=== PATIENT | male | born 1945 | race African-American/Black ===

== ENCOUNTER 2020-09-12 01:22 | Emergency (ER) | payer MEDICARE, MEDICAID ==
[2020-09-12] MEDS ORDERED: Rocuronium Bromide 10 MG/ML (10ML VIAL) ONE (01:36)
[2020-09-12] MEDS ORDERED: Propofol 1,000 MG/100 ML VIAL IV ONE (02:00)
[2020-09-12] MEDS ORDERED: Fentanyl 100 MCG/2 ML VIAL ONE ×2 (02:03→03:21)
[2020-09-12] MEDS ORDERED: levETIRAcetam in NS 100 ML ONE (02:35)
[2020-09-12] MEDS ORDERED: cefTRIAXone\\ROCEPHIN 2 GM VIAL ONE (02:35)
[2020-09-12 02:43] LABS: SARS-CoV-2 NAA Rapid Test Not Detected (NotDetected)
[2020-09-12] MEDS ORDERED: Thiamine HCl 200 MG/2 ML VIAL ONE (03:21)
[2020-09-12 03:23] LABS: Bilirubin Neg (Negative); Blood, Urine 25 (Negative); Clarity Clear (Clear); Glucose, Urine (Dipstick) Normal (Negative); Ketone, Urine 5 mg/dL (Negative); Leukocyte 25 (Negative); Nitrite Negative (Negative); Protein, Urine (Dipstick) 30 mg/dl (Neg-Trace); Urobilinogen Normal mg/dL (Less than 2)
[2020-09-12 03:28] LABS: #Monocytes 1.4 10x3/uL (0.0-1.1); #Neutrophils 10.1 10x3/uL (1.5-8.4); %Basophils 0.1 % (0.0-2.0); %Lymphocytes 6.2 % (18.0-47.0); %Monocytes 11.2 % (0.0-10.0); %Neutrophils 82.3 % (40.0-75.0); Hemoglobin 12.8 g/dL (13.5-17.5); Mean Corpuscular Hemoglobin 25.7 pg (27.0-33.0); Mean Corpuscular Volume 85.7 fl (81.2-95.1); Mean Platelet Volume 10.3 fl (7.4-10.4); Platelet Count 218 10x3/uL (150-450); RBC Distribution Width 16.6 % (11.5-14.5); Red Blood Cell (RBC) Count 4.98 10x6/uL (4.32-5.72); White Blood Cell (WBC) Count 12.3 10x3/uL (3.5-10.5)
[2020-09-12 03:31] LABS: Amphetamine Not Detected (NotDetected); Barbiturates Screen Not Detected (NotDetected); Benzodiazepine Screen Not Detected (NotDetected); Cocaine Metabolite Screen Not Detected (NotDetected); Methadone Not Detected (NotDetected); Methamphetamine Not Detected (NotDetected); Opiate Screen Not Detected (NotDetected); Oxycodone Screen Not Detected (NotDetected); Phencyclidine (PCP) Not Detected (NotDetected); THC/Cannabinoid Screen Not Detected (NotDetected); Tricyclic Screen Not Detected (NotDetected)
[2020-09-12 03:32] LABS: Acetaminophen Less than 6.0 mcg/mL (10.0-30.0); Alcohol Less than 10 mg/dL (Less than 10); Salicylate Less than 8.0 mg/dL (15.0-30.0)
[2020-09-12 03:34] LABS: ALT (SGPT) 20 U/L (8-55); AST (SGOT) 37 U/L (5-34); Albumin 3.3 g/dL (3.4-4.8); Alkaline Phosphatase 51 U/L (40-110); Anion Gap 16 mmol/L (10-20); BUN (Urea Nitrogen) 23 mg/dL (8.4-25.7); Bilirubin, Total 0.6 mg/dL (0.2-1.2); Calc. Creatinine Clearance 0 mL/min (70-130); Calcium 9.5 mg/dL (7.8-10.44); Carbon Dioxide 26 mmol/L (23-31); Chloride 111 mmol/L (98-107); Glucose 117 mg/dL (83-110); Potassium 4.4 mmol/L (3.5-5.1); Protein, Total 6.3 g/dL (5.8-8.1); Sodium 149 mmol/L (136-145)
[2020-09-12 03:35] LABS: Digoxin 0.54 ng/mL (0.8-2.0)
[2020-09-12 03:39] LABS: RBC/HPF 0-3 HPF (0-3); Squamous Epithelial None Seen HPF (0-3); WBC/HPF None Seen HPF (0-3)
[2020-09-12 03:57] LABS: Actual Bicarbonate (HCO3a) 23.4 mEq/L (22-28); Base Excess (BEa) -2.1 mEq/L (-2.0 to +3.0); CO2 Tension 42.8 mmHg (35.0-45.0); Calcium, Ionized (arterial) 1.27 mmol/L (1.12-1.30); Carboxyhemoglobin (COHb) 0.2 gm% (0.0-3.0); Hemoglobin (Hb) 12.6 g/dL (14.0-18.0); O2 Tension (PaO2), arterial 296.6 mmHg (> 70.0); Potassium - ABG Lab 3.7 mmol/L (3.70-5.30); Puncture Site RRA; pH, Arterial 7.36 (7.35-7.45)
== END 2020-09-12 05:39 | disposition short-term general hospital (02) ==
LOC: CSHERS 01:22
DX: G40.901 Epilepsy, unspecified, not intractable, with status epilepticus (principal); I62.03 Nontraumatic chronic subdural hemorrhage; J96.90 Respiratory failure, unspecified, unspecified whether with hypoxia or hypercapnia; I48.91 Unspecified atrial fibrillation; E11.9 Type 2 diabetes mellitus without complications; K21.9 Gastro-esophageal reflux disease without esophagitis; E78.5 Hyperlipidemia, unspecified; I10 Essential (primary) hypertension; Z79.899 Other long term (current) drug therapy
CPT/HCPCS: 31500 ×2; 36600; 51702; 70450; 71045; 80162; 80185; 80306; 80307; 82140; 82805; 82962; 83605; 87040; 87086; 93005; 94002; 94760; 96360; 96365; 96366; 96375; 96376; 99291; 99292; U0002; 36416; 80053; 81003; 81015; 84443; 85025; J0696; J1953; J2704; J3010; J3411